=== PATIENT | female | born 1930 | race Caucasian/White ===

== ENCOUNTER 2016-03-31 19:47 | Emergency (ER) | payer MEDICARE, OTHER ==
[2016-03-31] MEDS ORDERED: METOPROLOL TART 25 MG TAB ONE (23:03)
== END 2016-04-01 00:15 | disposition home or self-care (01) ==
LOC: ER 19:47
DX: M25.512 Pain in left shoulder (principal); J44.9 Chronic obstructive pulmonary disease, unspecified; I11.9 Hypertensive heart disease without heart failure; K21.9 Gastro-esophageal reflux disease without esophagitis; E03.9 Hypothyroidism, unspecified; Z79.899 Other long term (current) drug therapy
CPT/HCPCS: 36415; 71020; 80053; 81001; 85025; 87088